=== PATIENT | male | born 1990 | race Caucasian/White ===

== ENCOUNTER 2019-11-12 04:06 | Emergency (ER) | payer MEDICAID, SELFPAY ==
[2019-11-12 04:11] VITALS: BP 125/59; PULSE 125; RESP 20; TEMP 38.4; O2SAT 95; BMI 34.3
--- NOTE | 2019-11-12 04:16 | ED_ITS ---
Entered by Nimisha Alcala, acting as scribe for Abdullahi Mcgregor MD Nov 12, 2019 04:06 HPI - Nausea/Vomiting/Diarrhea General: Chief complaint: Nausea/Vomiting/Diarrhea Stated complaint: n/v Time Seen by Provider: 11/12/19 04:16 Source: patient Mode of arrival: ambulatory Limitations: no limitations History of Present Illness: HPI Narrative: 29 yo m came to the er pov for nausea, vomiting, fever and headache. Onset was last night. Pt said that he was around his mother that had the flu. Pt said that he right now he is light bothers his eyes at this time. Pt also does have a cough and congestion. MD elicited complaint: nausea, vomiting and other Onset (ago): day(s) (last night) Associated nausea: Yes Associated abdominal pain: No Location of pain: None Pain consistency: constant Severity: mild Context: sick contacts (mother) Associated symtoms: Reports fevers/chills, headache(s) and nausea; Denies chest pain or dysuria Review of Systems General: Reports: other (negative unless marked) Const: Reports: fever Eyes: Denies: blurry vision or eye discomfort ENMT: Denies: throat pain or dental pain Card: Denies: chest pain Resp: Reports: productive cough GI: Reports: nausea and vomiting : Denies: painful urination Musc: Denies: neck pain or back pain Skin/Breast: Denies: rash Neuro: Reports: headache Psych: Denies: depression Garrick/Lymph: Denies: easy bruising All/Imm: Denies: hives PFSH ED 2 PFSH: Social History Smoking and tobacco status: current every day smoker Physical Exam Const: COMMON NORMALS: no apparent distress, oriented x3 and healthy appearing HENMT: COMMON NORMALS: normocephalic and head/scalp atraumatic HEAD & SCALP: normocephalic and atraumatic Eye: COMMON NORMALS: PERRL and EOMs intact bilaterally PUPIL: Yes PERRL Neck/C-Spine: COMMON NORMALS: full ROM and supple Chest: COMMONS NORMALS: inspection of chest normal and palpation of chest normal Resp: COMMON NORMALS: normal respiratory effort, no retractions, no use of accessory muscles and clear to auscultation bilaterally AUSCULTATION: clear to auscultation bilaterally Cardio: COMMON NORMALS: regular rate, regular rhythm and no murmurs RATE: regular rate RHYTHM: regular rhythm GI: COMMON NORMALS: normal to inspection, nondistended, normoactive bowel sounds, soft to palpation, non-tender and no masses PALPATION: Yes soft Extremity: COMMON NORMALS: normal to inspection and full ROM Neuro: COMMON NORMALS: oriented x3, moves all extremities and no focal motor deficits Psych: COMMON NORMALS: mental status grossly normal, thought process normal and cooperative THOUGHT PROCESS: normal thought process Skin: COMMON NORMALS: no rashes or lesions noted and no wounds GENERAL SKIN EXAM: no rashes or lesions noted Course Vital Signs: Vital signs: Vital Signs Temperature 101.2 F H 11/12/19 04:11 Pulse Rate 125 H 11/12/19 04:11 Respiratory Rate 20 H 11/12/19 04:11 Blood Pressure 125/59 11/12/19 04:11 Pulse Oximetry 95 11/12/19 04:11 MDM - Nausea/Vomiting/Diarrhea MDM Narrative: Medical decision making narrative: Raffi presents here with vomiting along with muscle aches and has influenza. We will start him on Tamiflu.. Patient's feels much improved here. Patient's lab work here is normal. Patient stable for discharge and is return if worsening. Lab Data: Labs: Lab Results 11/12/19 11/12/19 11/12/19 Range/Units 04:27 04:27 04:27 WBC 7.4 (4.0-10.0) 10^3/ uL RBC 4.80 (4.1-5.3) 10^6/u L Hgb 14.8 (11.7-16.6) g/dL Hct 43.3 (42.0-52.0) % MCV 90.2 (80-94) fL MCH 30.8 (28.0-34.0) pg MCHC 34.2 (30.0-36.0) g/dL RDW 12.5 (12.1-15.1) % Plt Count 161 (130-400) 10^3/c mm MPV 11.4 H (7.4-10.4) fL Neut % (Auto) 86.2 % Lymph % (Auto) 4.8 % Wilkinson % (Auto) 8.2 % Eos % (Auto) 0.3 % Baso % (Auto) 0.1 % Neut # (Auto) 6.3 (1.8-7.7) 10^3/u L Lymph # (Auto) 0.4 L (0.8-4.8) 10^3/u L Wilkinson # (Auto) 0.6 (0.2-0.9) 10^3/u L Eos # (Auto) 0.0 (0.0-0.8) 10^3/u L Baso # (Auto) 0.0 (0.0-0.1) 10^3/u L Nucleated RBC % (a uto) 0 % Nucleated RBCs # 0.0 /100WBC Sodium 135 L (136-145) mmol/L Potassium 3.9 (3.5-5.1) mmol/L Chloride 101 (98-107) mmol/L Carbon Dioxide 21 L (22-29) mmol/L Anion Gap 16.9 (5-19) BUN 17 (6-20) mg/dL Creatinine 0.9 (0.7-1.2) mg/dL GFR Calculation 101.2 (90-130) mL/min Glucose 136 H (65-115) mg/dL Calculated Osmolal ity 278 L (285-295) mOsm/k g Calcium 9.9 (8.5-10.5) mg/dL Total Bilirubin 0.2 (0.15-1.2) mg/dL AST 20 (0-40) U/L ALT 29 (0-41) U/L Alkaline Phosphata se 68 (40-130) IU/L Total Protein 7.6 (6.6-8.7) g/dL Albumin 4.4 (3.5-5.2) g/dL Globulin 3.2 (1.3-4.6) g/dL Lipase 10 L (13-60) U/L Influenza Type A A g Positive H (Negative) POC Influenza B Ag Negative (Negative) Discharge Plan Discharge Patient Disposition: Home, Self-Care Clinical Impression: Influenza Condition: Stable Prescriptions: New Tamiflu 75 mg capsule 75 mg PO BID 5 Days Qty: 10 RF: 0 Zofran 4 mg tablet 4 mg PO QID PRN (Reason: nausea and vomiting) Qty: 14 RF: 0 Discharge Orders: Discharge Order (Routine); Ordered 03/10/20 Ordered By: Abdullahi Mcgregor Referrals: Masoud Steven Jr, MD [Primary Care Provider] - 4-7 days Discharge Diet: Advance as tolerated Discharge Activity: Resume usual activity Patient Instructions: Influenza (ED) Coding Level of Care Code ED Biodiesel Engineering Manager for Chg Fwd The documentation recorded by the Fredrick maharaj Stephanie Lyn, accurately reflects the service I personally performed and the decisions made by Balbir andrea Korby, MD Nov 12, 2019 04:06
[2019-11-12 04:37] LABS: Basophils % 0.1 %; Eosinophils % 0.3 %; Hematocrit 43.3 % (42.0-52.0); Hemoglobin 14.8 g/dL (11.7-16.6); Lymphocytes # 0.4 10^3/uL (0.8-4.8); Lymphocytes % 4.8 %; Mean Corpuscular HGB Conc 34.2 g/dL (30.0-36.0); Mean Corpuscular Hemoglobin 30.8 pg (28.0-34.0); Mean Corpuscular Volume 90.2 fL (80-94); Mean Platelet Volume 11.4 fL (7.4-10.4); Monocytes # 0.6 10^3/uL (0.2-0.9); Monocytes % 8.2 %; Neutrophils # 6.3 10^3/uL (1.8-7.7); Neutrophils % 86.2 %; Nucleated Red Blood Cells % 0 %; Platelet Count 161 10^3/cmm (130-400); Red Cell Distribution Width 12.5 % (12.1-15.1); White Blood Count 7.4 10^3/uL (4.0-10.0)
[2019-11-12] MEDS: diphenhydrAMINE 50 mg/mL SDV 1mL IVP (04:44)
[2019-11-12] MEDS: metoclopramide 5 mg/mL SDV 2 mL 10 MG IVP (04:44)
[2019-11-12] MEDS: acetaminophen 500 mg Tablet 1000 MG PO (04:44)
[2019-11-12] MEDS: sodium chloride 0.9% 1,000 ML 999 ML IV ×2 (04:45)
[2019-11-12 04:54] LABS: Influenza A by IFA Positive (Negative); Influenza B by IFA Negative (Negative)
[2019-11-12 04:55] LABS: Alanine Aminotransferase 29 U/L (0-41); Albumin Level 4.4 g/dL (3.5-5.2); Alkaline Phosphatase 68 IU/L (40-130); Anion Gap 16.9 (5-19); Aspartate Amino Transferase 20 U/L (0-40); Blood Urea Nitrogen 17 mg/dL (6-20); Calcium 9.9 mg/dL (8.5-10.5); Carbon Dioxide 21 mmol/L (22-29); Chloride 101 mmol/L (98-107); Globulin 3.2 g/dL (1.3-4.6); Glomerular Filtration Rate 101.2 mL/min (90-130); Glucose 136 mg/dL (65-115); Lipase 10 U/L (13-60); Osmolality Calculated 278 mOsm/kg (285-295); Potassium 3.9 mmol/L (3.5-5.1); Sodium 135 mmol/L (136-145); Total Bilirubin 0.2 mg/dL (0.15-1.2); Total Protein 7.6 g/dL (6.6-8.7)
[2019-11-12 05:56] VITALS: BP 95/50; PULSE 110; RESP 24; TEMP 37.1; O2SAT 98
== END 2019-11-12 05:57 | disposition home or self-care (01) ==
PROVIDERS: Emergency Provider Emergency Medicine; PCP Pediatrics Adolescent Medicine
DX: J11.1 Influenza due to unidentified influenza virus with other respiratory manifestations (principal); F17.200 Nicotine dependence, unspecified, uncomplicated
CPT/HCPCS: 12345; 36415; 80053; 83690; 85025; 87804; 96361; 96374; 96375; 99283; J1200; J2765; J7030

== ENCOUNTER 2020-04-01 12:33 | Emergency (ER) | payer MEDICAID, SELFPAY ==
[2020-04-01 13:11] VITALS: BP 144/66; PULSE 65; RESP 16; TEMP 36.3; O2SAT 98; BMI 34.7
--- NOTE | 2020-04-01 14:09 | ED_ITS ---
HPI - Neck Pain/Injury General: Chief Complaint: Neck Pain/Injury Stated Complaint: neck pain/IRAHETA Time Seen by Provider: 04/01/20 14:03 Source: patient and family Mode of arrival: ambulatory Limitations: no limitations History of Present Illness: HPI Narrative: Patient states that at least once a year for the last 5 years he has had these neck pain, usually on the right side of his neck. He had been told that he has a pinched nerve and other that time he had been told that he had muscle spasms. He had been referred to a specialist but because he is uninsured he has not gone to see the specialist. Symptoms started about 4 days ago and have progressively worsened. No trauma, no fever, no neck stiffness. MD complaint: neck pain Onset (ago): day(s) (4) Place: home Radiation: right lateral Severity: severe Severity scale (1-10): 10 Quality: sharp and spasming Duration: constant and progressively worsening Relieving factors: none Exacerbating factors: movement of neck Associated symptoms: Reports no associated symptoms; Denies headache(s) or nausea Treatments prior to arrival: none Review of Systems General: Reports: 10 or more systems reviewed and unremarkable except in HPI and below Const: Denies: fever(s), chills or body aches Eyes: Denies: change in vision or blurry vision ENMT: Denies: throat pain, enlarged tonsils, odynophagia, hoarseness, mouth pain or swelling of lips/tongue Card: Denies: palpitations, irregular heart rhythm, edema or swelling of feet/ankles Resp: Denies: dyspnea, productive cough or non-productive cough GI: Denies: abdominal pain, nausea or vomiting : Denies: flank pain, dysuria, urinary frequency, urinary urgency or urinary hesitancy Musc: Reports: neck pain; Denies: back pain or extremity swelling Skin/Breast: Denies: rash, pruritus or erythema Neuro: Denies: headache(s), numbness in extremities or weakness in extremities Endo: Denies: polyuria, polydipsia or tired all the time PFSH ED PFSH: Social History (Reviewed 04/01/20 @ 14:13 by Nanda Chow MD, [facility] [place]) Smoking and tobacco status: former smoker Quit status (tobacco): has quit using tobacco Alcohol intake: current Alcohol intake frequency: holidays/special occasions only Substance/Drug Use: never Physical Exam Const: COMMON NORMALS: no acute distress, average body habitus, patient oriented x3, no limitations, healthy appearing, alert and well nourished HENMT: COMMON NORMALS: normocephalic, atraumatic and moist oral mucous membranes HEAD & SCALP: normocephalic and atraumatic Eye: COMMON NORMALS: Equal, round and reactive pupils present, EOMs intact bilaterally, conjunctivae normal and no scleral icterus CONJUNCTIVA: Yes conjunctivae normal PUPIL: Yes Equal, round and reactive pupils present Neck/C-Spine: COMMON NORMALS: full ROM, supple, no meningeal signs, no JVD and No carotid bruits CERVICAL SPINE: No Cervical spine tenderness, Yes Paracervical muscle tenderness right, Yes Paracervical spasm right and Yes Trapezius muscle tenderness right Resp: COMMON NORMALS: normal respiratory effort, No retractions, No use of accessory muscles, clear to auscultation bilaterally and percussion normal AUSCULTATION: clear to auscultation bilaterally PERCUSSION: percussion normal Cardio: COMMON NORMALS: no JVD, regular rate, regular rhythm, S1 normal heart sound present, S2 normal heart sound present, No gallops present (Cardio), No clicks present (Cardio), No murmurs present (Cardio), No rub (Cardio) and Peripheral pulses 2+ throughout RATE: regular rate RHYTHM: regular rhythm HEART SOUNDS: S1 normal heart sound present and S2 normal heart sound present PERIPHERAL PULSES: Peripheral pulses 2+ throughout GI: COMMON NORMALS: Normal to inspection, nondistended, normoactive bowel sounds present, Soft to palpation, non-tender, No hepatosplenomegaly present, no masses and no bruits PALPATION: Yes Soft to palpation and Yes No hepatosplenomegaly present : COMMON NORMALS: Yes no CVA tenderness BLADDER/KIDNEY EXAM: Yes no CVA tenderness Back/Pelvis: COMMON NORMALS: no CVA tenderness Extremity: COMMON NORMALS: normal to inspection, full ROM, capillary refill normal, no calf tenderness and no pedal edema Neuro: COMMON NORMALS: patient oriented x3 SENSORIUM/ORIENTATION: Yes alert MENINGEAL SIGNS: Yes no meningeal signs Skin: COMMON NORMALS: no rashes or lesions noted, no wounds, turgor normal, no jaundice, no petechiae and no mottling GENERAL SKIN EXAM: no rashes or l esions noted and turgor normal Course Reevaluation(s): Reevaluation #1: Patient feels much better. Pain is resolved. The nurse had told me that the patient neglected to mention that he jumped off a few bridges a couple of days ago which probably caused this pain. I therefore ordered a CT of his neck which was negative. We will discharge him home with no new orders and he voiced understanding and is in agreement with the plan. Time: 16:30 Vital Signs: Vital signs: Vital Signs Temperature 97.4 F L 04/01/20 13:11 Pulse Rate 76 04/01/20 15:26 Respiratory Rate 16 04/01/20 15:26 Blood Pressure 120/71 04/01/20 15:26 Pulse Oximetry 96 04/01/20 15:26 MDM - Neck Pain/Injury MDM Narrative: Medical decision making narrative: 30-year-old gentleman with muscular neck pain. Pain started a few days after he jumped off bridges into [employer] for recreation. CT scan of his neck was negative for acute fracture or dislocation. Patient obtain relief following the Toradol and Norflex shot. He is discharged home with no new orders. Imaging Data^: Other CT: Radiologist's impression: [place] [address] CT Scan Report Signed Patient: Raffi Beasley #: [id number] : 1990Acct#:[id number] Age/Sex: 30 / MADM Date: 04/01/20 Loc: ERRoom/Bed: Attending Dr: Ordering Provider/Ordering MD: Nanda Chow MD, [facility] [place] Date of Service: 04/01/20 Procedure(s): CT cervical spin wo con* [id number] Accession Number(s): [id number] Report Number: [id number] PROCEDURE INFORMATION: Exam: CT Cervical Spine Without Contrast Exam date and time: 04/01/2020 3:35 PM Age: 30 years old Clinical indication: Injury or trauma; Injury history: Jumped off bridge; Initial encounter; Blunt trauma; Injury date: 2 days ago; Additional info: Neck pain. Jumped of bridges 2 days ago TECHNIQUE: Imaging protocol: Computed tomography images of the cervical spine without contrast. Radiation optimization: All CT scans at this facility use at least one of these dose optimization techniques: automated exposure control; mA and/or kV adjustment per patient size (includes targeted exams where dose is matched to clinical indication); or iterative reconstruction. COMPARISON: CR Cervical Spine AP/Lat* [id number] 10/23/2018 7:50 AM RADIATION DOSE METRICS: Total DLP (mGy-cm): 937.45 FINDINGS: Vertebrae: No acute fracture. Normal alignment. Discs/Spinal canal/Neural foramina: No significant disc protrusion. No severe spinal canal stenosis. No significant neural foraminal narrowing. Soft tissues: Unremarkable. Lungs: Lung apices are normal. CT/CT cervical spin wo con* [id number] IMPRESSION: No acute findings. Radiation Dose CTDIVOL = (mGy): DLP = 937.45 (mGy-cm) Dictated By:London Fiore MD Signed By:London Fioreigned Date/Time:04/01/20 1600 DD/ 1559 Discharge Plan Discharge Patient Disposition: Home Clinical Impression: Strain of neck muscle Qualifiers: Encounter type: initial encounter Qualified Code(s): S16.1XXA - Strain of muscle, fascia and tendon at neck level, initial encounter Condition: Stable Prescriptions: Continued ibuprofen 200 mg Tablet 400 mg PO PRN RF: 0 Tylenol 5 tab PO PRN RF: 0 Discharge Orders: Discharge Order (Routine); Ordered 04/01/20 Ordered By: Nanda Chow Discharge Diet: Usual diet Discharge Activity: Increase activity as tolerated Patient Instructions: Cervical Sprain (ED) Activity Restrictions/Additional Instructions: Return for any new or worsening symptoms. You may apply a warm compress to the affected area for 15 minutes on and at least 15 minutes off. Take Tylenol or ibuprofen as needed for pain. Coding Level of Care Code ED Operating Room Manager for Marv Fwalisha Exam Comprehensive
[2020-04-01] MEDS: ketorolac 60 mg/2 mL INJ IM (14:23)
[2020-04-01] MEDS: orphenadrine 30 mg/mL Inj 2 mL 60 MG IM (14:23)
[2020-04-01 14:25] VITALS: BP 130/75; PULSE 74; RESP 18; O2SAT 97
--- NOTE | 2020-04-01 15:14 | CTR_ITS ---
PROCEDURE INFORMATION: Exam: CT Cervical Spine Without Contrast Exam date and time: 04/01/2020 3:35 PM Age: 30 years old Clinical indication: Injury or trauma; Injury history: Jumped off bridge; Initial encounter; Blunt trauma; Injury date: 2 days ago; Additional info: Neck pain. Jumped of bridges 2 days ago TECHNIQUE: Imaging protocol: Computed tomography images of the cervical spine without contrast. Radiation optimization: All CT scans at this facility use at least one of these dose optimization techniques: automated exposure control; mA and/or kV adjustment per patient size (includes targeted exams where dose is matched to clinical indication); or iterative reconstruction. COMPARISON: CR Cervical Spine AP/Lat* [id number] 10/23/2018 7:50 AM RADIATION DOSE METRICS: Total DLP (mGy-cm): 937.45 FINDINGS: Vertebrae: No acute fracture. Normal alignment. Discs/Spinal canal/Neural foramina: No significant disc protrusion. No severe spinal canal stenosis. No significant neural foraminal narrowing. Soft tissues: Unremarkable. Lungs: Lung apices are normal. CT/CT cervical spin wo con* [id number] IMPRESSION: No acute findings. Radiation Dose CTDIVOL = (mGy): DLP = 937.45 (mGy-cm)
[2020-04-01 15:26] VITALS: BP 120/71; PULSE 76; RESP 16; O2SAT 96
[2020-04-01 16:58] VITALS: BP 113/63; PULSE 53; RESP 16; TEMP 37.2; O2SAT 96
== END 2020-04-01 17:00 | disposition home or self-care (01) ==
PROVIDERS: Emergency Provider Family Medicine
DX: S16.1XXA Strain of muscle, fascia and tendon at neck level, initial encounter (principal); Z87.891 Personal history of nicotine dependence; X58.XXXA Exposure to other specified factors, initial encounter
CPT/HCPCS: 12345; 72125; 96372; 99281; 99283; J1885; J2360

== ENCOUNTER 2021-07-10 20:19 | Emergency (ER) | payer MEDICAID, SELFPAY ==
[2021-07-10 20:34] VITALS: BP 104/67; PULSE 92; RESP 16; TEMP 37; O2SAT 98
--- NOTE | 2021-07-10 21:22 | ED_ITS ---
HPI - Back Pain/Injury General: Chief Complaint: Back Pain/Injury Stated Complaint: back pain, moved everywhere Time Seen by Provider: 07/10/21 21:05 Source: patient Mode of arrival: ambulatory Limitations: no limitations History of Present Illness: HPI Narrative: Patient is a 31-year-old male who presents to ED today with a complaint of lower back pain. He states he has had pain over the past 3 to 4 days. He states he was working about a week ago loading wood into a trailer but states this did not entail a lot of heavy lifting. He states pain seems to stay in his lower back. He does have some mild discomfort to his right groin but does not feel the pain is radiating around from his back. He does not complain of any urinary symptoms. He has no flank pain. Denies penile discharge/lesions. No testicular/scrotal swelling or redness. Patient denies radicular symptoms. No fever, chills, body aches. 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 MD elicited complaint: back pain Onset (ago): day(s) Timing: constant Severity: moderate Pain scale (0-10): 7 Similar Symptoms Previously: No Location: lumbar spine Radiation: groin Exacerbating factors: movement, supine positioning and lifting Associated symptoms: Deny abdominal pain, chills, difficulty walking, dysuria, fatigue, fever(s), hematuria, nausea or vomiting Work related injury: No Review of Systems Const: Denies: fever(s), chills, body aches, fatigue or malaise Card: Denies: chest pain Resp: Denies: dyspnea GI: Denies: abdominal pain, nausea, vomiting or diarrhea : Reports: genital pain; Denies: flank pain, dysuria, hematuria, genital lesions, penile discharge, testicular mass, scrotal swelling or hematospermia Musc: Reports: back pain; Denies: neck pain, extremity pain or joint pain Skin/Breast: Denies: rash Neuro: Denies: headache(s), numbness in extremities, weakness in extremities, sensory changes or difficulty walking PFS ED PFSH: Social History (Reviewed 04/01/20 @ 14:13 by Nanda Chow MD, [facility] [place]) Smoking and tobacco status: former smoker Quit status (tobacco): has quit using tobacco Alcohol intake: current Alcohol intake frequency: holidays/special occasions only Physical Exam Const: COMMON NORMALS: no acute distress, patient oriented x3, no limitations, alert and well nourished GENERAL APPEARANCE: cooperative NUTRITIONAL APPEARANCE: overweight ORIENTATION/CONSCIOUSNESS: Yes awake, Yes oriented to person, Yes oriented to place and Yes oriented to time HENMT: COMMON NORMALS: normocephalic and atraumatic HEAD & SCALP: normocephalic and atraumatic Resp: COMMON NORMALS: normal respiratory effort and clear to auscultation bilaterally AUSCULTATION: clear to auscultation bilaterally Cardio: COMMON NORMALS: regular rate and regular rhythm RATE: regular rate RHYTHM: regular rhythm GI: COMMON NORMALS: Normal to inspection, nondistended, normoactive bowel sounds present, Soft to palpation, non-tender, No hepatosplenomegaly present and no masses PALPATION: Yes Soft to palpation and Yes No hepatosplenomegaly present : COMMON NORMALS: Yes no CVA tenderness BLADDER/KIDNEY EXAM: Yes no CVA tenderness PENIS: normal penis MEATUS: meatus normal SCROTUM: Yes testes descended bilaterally, No Scrotal tenderness present, No erythematous, No edematous and No scrotal swelling TESTES: Yes testicular lie normal, No testicular swelling, No testicular tenderness and Yes epididymides normal Back/Pelvis: COMMON NORMALS: no CVA tenderness THORACIC SPINE/UPPER BACK: Yes normal to inspection, Yes thoracic ROM normal, No thoracic spinal tenderness, No paraspinal muscle tenderness and No paraspinal muscle spasm LUMBAR SPINE/LOWER BACK: Yes lumbar spinal tenderness Lumbar spinal tenderness location: L2, L3 and L4, Yes paraspinal muscle tenderness, No paraspinal muscle spasm, No mass present and Yes straight leg raise positive left PELVIS: Yes buttocks normal SACROILIAC JOINTS: Yes SI joints normal Extremity: COMMON NORMALS: normal to inspection and full ROM GENERAL: Yes normal exam except as noted Neuro: KEYANNA COMA SCALE: document GCS findings Tell coma scale eye o pening: Spontaneous Tell coma scale verbal response: Orientated Tell coma scale motor response: Obey commands Tell coma scale total score: 15 COMMON NORMALS: patient oriented x3, moves all extremities, no focal motor deficits, no sensory deficits noted and gait normal SENSORIUM/ORIENTATION: Yes alert, Yes oriented to person, Yes oriented to place and Yes oriented to time Skin: COMMON NORMALS: no rashes or lesions noted GENERAL SKIN EXAM: no rashes or lesions noted TRAUMA: no lacerations or abrasions Course Vital Signs: Vital signs: Vital Signs Temperature 98.6 F 07/10/21 20:34 Pulse Rate 84 07/10/21 23:27 Respiratory Rate 18 07/10/21 23:27 Blood Pressure 110/70 07/10/21 23:27 Pulse Oximetry 100 07/10/21 23:27 MDM - Back Pain/Injury MDM Narrative: Medical decision making narrative: Patient's pain has decreased from a 7/10 to a 2/10 following IM Toradol and Norflex. Patient has no acute neurologic deficits on his exam. He is not febrile or tachycardic. 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 At this time I do not have any suspicion for an abscess/discitis. Strict return to ED precautions given. Otherwise recommend follow-up with primary care. Lab Data: Labs: Lab Results 07/10/21 22:33 Urine Color Yellow (Yellow) Urine Appearance Clear (CLEAR) Urine pH 5 (5-7) Ur Specific Gravit y 1.025 (1.005-1.030) Urine Protein Neg (Negative) Urine Glucose (UA) Norm (Normal) Urine Ketones Negative (Negative) Urine Blood Neg (Negative) Urine Nitrate Negative (Negative) Urine Bilirubin Neg (Negative) Urine Urobilinogen Norm mg/dL mg/dL (Negative) Ur Leukocyte Juany ase Negative (Negative) Discharge Plan Discharge Patient Disposition: Home Clinical Impression: Low back pain Qualifiers: Chronicity: acute Back pain laterality: midline Sciatica presence: without sciatica Qualified Code(s): M54.50 - Low back pain, unspecified Condition: Stable Prescriptions: New cyclobenzaprine 10 mg tablet 10 mg PO TID Qty: 14 RF: 0 Medrol (Luis) 4 mg tablets,dose pack See Rx Instructions .ROUTE .COMPLEX Qty: 21 RF: 0 ibuprofen 800 mg tablet 800 mg PO Q8H PRN (Reason: pain) Qty: 20 RF: 0 Discontinued ibuprofen 200 mg Tablet 400 mg PO PRN RF: 0 Tylenol 5 tab PO PRN RF: 0 Discharge Orders: Discharge ED (Routine); Ordered 07/10/21 Ordered By: Jessy Laguerre Patient Instructions: Acute Low Back Pain (ED) Activity Restrictions/Additional Instructions: As we discussed please return to the emergency department for worsening back pain, trouble walking/ambulating, fevers greater than 100.4, generally feeling unwell, inability to urinate, loss of bowels, or any other concerns you may have. Otherwise please follow-up with your primary care provider. Coding Level of Care Code ED Geriatric Social Work Professor for Chg Fwd Exam Comprehensive
[2021-07-10] MEDS: ketorolac 60 mg/2 mL INJ IM (22:35)
[2021-07-10] MEDS: orphenadrine 30 mg/mL Inj 2 mL 60 MG IM (22:36)
[2021-07-10 22:55] LABS: Add Urine Microscopic? NO; Charge for UA Resulting for Rev
[2021-07-10 23:02] LABS: Bilirubin Urine Neg (Negative); Blood Urine Neg (Negative); Glucose Urine UA Norm (Normal); Ketones Urine Negative (Negative); Leukocyte Esterase Urine Negative (Negative); Nitrate Urine Negative (Negative); Protein Urine Neg (Negative); Specific Gravity, Urine 1.025 (1.005-1.030); Urine Appearance Clear (CLEAR); Urine Color Yellow (Yellow); Urobilinogen Urine Norm (Negative); pH Urine 5 (5-7)
[2021-07-10 23:27] VITALS: BP 110/70; PULSE 84; RESP 18; O2SAT 100
== END 2021-07-10 23:28 | disposition home or self-care (01) ==
PROVIDERS: Emergency Provider Physician Assistant
DX: M54.50 Low back pain, unspecified (principal); Z87.891 Personal history of nicotine dependence
CPT/HCPCS: 81003; 96372; 99283; J1885; J2360

== ENCOUNTER 2021-12-18 16:12 | Emergency (ER) | payer MEDICAID, SELFPAY ==
[2021-12-18 16:40] VITALS: BP 155/81; PULSE 66; RESP 18; TEMP 36; O2SAT 100; BMI 32.3
--- NOTE | 2021-12-18 16:51 | CTR_ITS ---
PROCEDURE INFORMATION: Exam: CT Abdomen And Pelvis With Contrast Exam date and time: 12/18/2021 6:34 PM Age: 31 years old Clinical indication: Abdominal pain; Generalized; Patient HX: C/O severe abd pain w n/v; Additional info: Eval for pathologies TECHNIQUE: Imaging protocol: Computed tomography of the abdomen and pelvis with contrast. Radiation optimization: All CT scans at this facility use at least one of these dose optimization techniques: automated exposure control; mA and/or kV adjustment per patient size (includes targeted exams where dose is matched to clinical indication); or iterative reconstruction. Contrast material: OMNI 300; Contrast volume: 95 ml; Contrast route: INTRAVENOUS (IV); COMPARISON: No relevant prior studies available. RADIATION DOSE METRICS: Total DLP (mGy-cm): 1772.14 FINDINGS: Lungs: Mosaic lung attenuation is seen in the lung bases which may be secondary to small airways or small vessel disease. Heart: The heart is normal in size. Liver: Normal. No mass. Gallbladder and bile ducts: Normal. No calcified stones. No ductal dilation. Pancreas: Normal. No ductal dilation. Spleen: Normal. No splenomegaly. Adrenal glands: Normal. No mass. Kidneys and ureters: Normal. No hydronephrosis. Stomach and bowel: Unremarkable. No obstruction. No mucosal thickening. Appendix: The appendix is normal. Intraperitoneal space: Unremarkable. No free air. No significant fluid collection. Arteries: Unremarkable. No abdominal aortic aneurysm. Lymph nodes: Unremarkable. No enlarged lymph nodes. Urinary bladder: Unremarkable as visualized. Reproductive: Unremarkable as visualized. Bones/joints: Unremarkable. No acute fracture. Soft tissues: Unremarkable. CT/CT abdomen pelvis w con* [id number] IMPRESSION: 1. No acute abnormality is seen in the abdomen or pelvis. 2. Bibasilar mosaic lung attenuation which may be secondary to small airways or small vessel disease.
[2021-12-18] MEDS: ondansetron 2 mg/ML SDV 2 mL 4 MG IVP (17:03)
[2021-12-18] MEDS: morphine 4 mg/mL SDV 1 mL IVP (17:03)
[2021-12-18] MEDS: sodium chloride 0.9% 1,000 ML 999 ML IV (17:04)
[2021-12-18 17:08] LABS: Basophils % 0.2 %; Eosinophils % 0.1 %; Hematocrit 44.7 % (42.0-52.0); Hemoglobin 15.8 g/dL (11.7-16.6); Lymphocytes # 1.7 10^3/uL (0.8-4.8); Lymphocytes % 11.3 %; Mean Corpuscular HGB Conc 35.3 g/dL (30.0-36.0); Mean Corpuscular Hemoglobin 30.4 pg (28.0-34.0); Mean Corpuscular Volume 86.1 fl (80-94); Mean Platelet Volume 11.6 fL (7.4-10.4); Monocytes # 0.6 10^3/uL (0.2-0.9); Monocytes % 4.3 %; Neutrophils # 12.19 10^3/uL (1.8-7.7); Neutrophils % 83.7 %; Nucleated Red Blood Cells % 0 %; Platelet Count 225 10^3/cmm (130-400); Red Blood Count 5.19 10^6/uL (4.1-5.3); Red Cell Distribution Width 12.2 % (12.1-15.1); White Blood Count 14.6 10^3/uL (4.0-10.0)
[2021-12-18 17:11] VITALS: BP 129/74; PULSE 63; RESP 12; O2SAT 93
--- NOTE | 2021-12-18 17:24 | ED_ITS ---
HPI - General Adult General: Chief complaint: Abdominal Pain Stated complaint: severe abdominal pain/nausea/vomiting/headache Time Seen by Provider: 12/18/21 16:45 History of Present Illness: Patient is a 31-year-old male with no significant past medical history presenting to the emergency room with complaints of generalized abdominal pain, nausea and vomiting since 12:00. Patient was in the vehicle when he suddenly developed significant abdominal pain. Patient reports multiple episodes of emesis. Patient denies any prior abdominal surgery, complaints, new penile discharge, urinary complaint, melena/hematochezia. Onset:12pm Duration:ongoing Location:home Severity:moderate Associated symptoms: Reports nausea and vomiting; Deny chest pain, dyspnea, rash or palpitations Review of Systems Const: Denies: fever(s) or chills Eyes: Denies: change in vision ENMT: Denies: mouth pain Card: Denies: chest pain or palpitations Resp: Denies: dyspnea or non-productive cough GI: Reports: abdominal pain, nausea and vomiting; Denies: diarrhea : Denies: dysuria Musc: Denies: extremity pain Skin/Breast: Denies: rash or new lesions Neuro: Denies: weakness in extremities Psych: Reports: other (Normal mood) Garrick/Lymph: Denies: easy bruising PFSH ED PFSH: Medical History (Updated 12/18/21 @ 19:41 by Mckay France MD) No pertinent past medical history Social History (Updated 12/18/21 @ 17:26 by Mckay France MD) Smoking and tobacco status: former smoker Quit status (tobacco): has quit using tobacco Alcohol intake: current Alcohol intake frequency: holidays/special occasions only Substance/Drug Use: current Substance/Drug use type: Marijuana Physical Exam Const: COMMON NORMALS: alert HENMT: COMMON NORMALS: atraumatic HEAD & SCALP: atraumatic MOUTH: moist mucous membranes not abnormal Eye: COMMON NORMALS: EOMs intact bilaterally and conjunctivae normal CONJUNCTIVA: Yes conjunctivae normal Neck/C-Spine: COMMON NORMALS: full ROM and supple Resp: COMMON NORMALS: normal respiratory effort and clear to auscultation bilaterally AUSCULTATION: clear to auscultation bilaterally Cardio: COMMON NORMALS: regular rate RATE: regular rate GI: COMMON NORMALS: Soft to palpation PALPATION: Yes Soft to palpation OTHER: +Mild diffuse abdominal TTP. NO guarding rebound, guarding, rigidity. No CVA tenderness to percussion. Neg Dai/Neg McBurney's point tenderness, no suprabupic tenderness to palpation. Extremity: COMMON NORMALS: full ROM Neuro: SENSORIUM/ORIENTATION: Yes alert MOTOR EXAM: No Abnormal motor strength present and Other motor observations present (no focal motor deficits) Psych: COMMON NORMALS: speech normal SPEECH: Yes normal speech MOOD & AFFECT: Yes euthymic mood Course Vital Signs: Vital signs: Vital Signs Temperature 96.8 F L 12/18/21 16:40 Pulse Rate 56 L 12/18/21 20:25 Respiratory Rate 17 12/18/21 20:25 Blood Pressure 119/75 12/18/21 20:25 Pulse Oximetry 94 12/18/21 20:25 MDM - General Adult Medical Decision Making 31-year-old male with history of daily marijuana use presenting to emergency room with complaints of severe abdominal pain nausea vomiting. On exam, patient is in mild distress with diffuse abdominal tenderness to palpation. No guarding no rebound tenderness. Lab work-up showed white count 14.6. CT abdomen pelvis showed no focal pathology. Patient noted to have lactate of 3. Initially on arrival. After IVF, lactate improved. Patient is now able to tolerate p.o. without any difficulty. Patient reports pain significantly better. Considered appendicitis however unlikely at this time given lack of signs and sx's to suggest appendicitis as etiology. Pt counseled that appendicitis may la ter develop and given appendicitis precautions and instructed to return if any development of RLQ tenderness, worsening or continued abdominal pain, or any fevers, chills, nausea, vomiting, or any other concerning signs or symptoms. Rx tylenol PRN abd pain, maalox/pepcid PRN dyspepsia, and zofran PRN nausea/vomiting Disposition: Discharge. Patient counseled regarding diagnostic impression, treat ment plan. Patient given ED strict return precautions to return for continuation, worsening, or development of new symptoms. Instructed to f/u w/ PCP regarding symptoms today. Patient verbalized understanding. Lab Data : 12/18/21 17:01 12/18/21 17:01 Radiology Impressions Abdomen/Pelvis CT 12/18/21 16:51 IMPRESSION: 1. No acute abnormality is seen in the abdomen or pelvis. 2. Bibasilar mosaic lung attenuation which may be secondary to small airways or small vessel disease. Laboratory Results WBC 14.6 10^3/uL (4.0-10.0) H 12/18/21 17:01 RBC 5.19 10^6/uL (4.1-5.3) 12/18/21 17:01 Hgb 15.8 g/dL (11.7-16.6) 12/18/21 17:01 Hct 44.7 % (42.0-52.0) 12/18/21 17: MCV 86.1 fl (80-94) 12/18/21 17: MCH 30.4 pg (28.0-34.0) 12/18/21 17: MCHC 35.3 g/dL (30.0-36.0) 12/18/21 17: RDW 12.2 % (12.1-15.1) 12/18/21 17: Plt Count 225 10^3/cmm (130-400) 12/18/21 17:01 MPV 11.6 fL (7.4-10.4) H 12/18/21 17:01 Neut % (Auto) 83.7 % 12/18/21 17:01 Lymph % (Auto) 11.3 % 12/18/21 17:01 [place] % (Auto) 4.3 % 12/18/21 17:01 Eos % (Auto) 0.1 % 12/18/21 17: Baso % (Auto) 0.2 % 12/18/21 17: Neut # (Auto) 12.19 10^3/uL (1.8-7.7) H 12/18/21 17:01 Lymph # (Auto) 1.7 10^3/uL (0.8-4.8) 12/18/21 17:01 [place] # (Auto) 0.6 10^3/uL (0.2-0.9) 12/18/21 17:01 Eos # (Auto) 0.0 10^3/uL (0.0-0.8) 12/18/21 17:01 Baso # (Auto) 0.0 10^3/uL (0.0-0.1) 12/18/21 17: Nucleated RBC % (auto) 0 % 12/18/21 17: Nucleated RBCs # 0.0 /100WBC 12/18/21 17:01 Sodium 137 mmol/L (136-145) 12/18/21 17:01 Potassium 4.1 mmol/L (3.5-5.1) 12/18/21 17:01 Chloride 100 mmol/L (98-107) 12/18/21 17:01 Carbon Dioxide 20 mmol/L (22-29) L 12/18/21 17:01 Anion Gap 21.1 (5-19) H 12/18/21 17:01 BUN 13 mg/dL (6-20) 12/18/21 17:01 Creatinine 0.7 mg/dL (0.7-1.2) 12/18/21 17:01 GFR Calculation 133.3 mL/min (90-130) H 12/18/21 17:01 Glucose 153 mg/dL (65-115) H 12/18/21 17:01 Calculated Osmolality 287 mOsm/kg (285-295) 12/18/21 17:01 Lactate 1.3 mmol/L (0.5-2.2) 12/18/21 19:50 Calcium 9.4 mg/dL (8.5-10.5) 12/18/21 17:01 Total Bilirubin 0.4 mg/dL (0.15-1.2) 12/18/21 17:01 AST 21 U/L (0-40) 12/18/21 17:01 ALT 24 U/L (0-41) 12/18/21 17:01 Alkaline Phosphatase 72 IU/L (40-130) 12/18/21 17:01 Total Protein 7.4 g/dL (6.6-8.7) 12/18/21 17:01 Albumin 5.3 g/dL (3.5-5.2) H 12/18/21 17:01 Globulin 2.1 g/dL (1.3-4.6) 12/18/21 17:01 Lipase 10 U/L (13-60) L 12/18/21 17:01 Urine Color Yellow (Yellow) 12/18/21 18:00 Urine Appearance Sl hazy (CLEAR) 12/18/21 18:00 Urine pH 8 (5-7) H 12/18/21 18:00 Ur Specific [place] 1.010 (1.005-1.030) 12/18/21 18:00 Urine Protein Neg (Negative) 12/18/21 18:00 Urine Glucose (UA) Norm (Normal) 12/18/21 18:00 Urine Ketones 1+ (Negative) H 12/18/21 18:00 Urine Blood Neg (Negative) 12/18/21 18:00 Urine Nitrate Negative (Negative) 12/18/21 18:00 Urine Bilirubin Neg (Negative) 12/18/21 18:00 Prot Sulfosalicylic Acd Positive (Negative) 12/18/21 18:00 Urine Urobilinogen Norm mg/dL (Negative) 12/18/21 18:00 Ur Leukocyte Esterase Negative (Negative) 12/18/21 18:00 Urine RBC 0-4 /hpf (0-2) H 12/18/21 18:00 Urine WBC 0-4 /hpf (0-5) H 12/18/21 18:00 Ur Squamous Epith Cells 0-4 /hpf (0-5) H 12/18/21 18:00 Amorphous Sediment 3+ /hpf 12/18/21 18:00 Urine Bacteria Trace /hpf (NONE) 12/18/21 18:00 Urine Opiates Screen Positive ng/mL (Negative) H 12/18/21 19:57 Ur Barbiturates Screen Negative ng/mL (Negative) 12/18/21 19:57 Ur Phencyclidine Scrn Negative ng/mL (Negative) 12/18/21 19:57 Ur Amphetamines Screen Negative ng/mL (Negative) 12/18/21 19:57 U Benzodiazepines Scrn Negative ng/mL (Negative) 12/18/21 19:57 Urine Cocaine Screen Negative ng/mL (Negative) 12/18/21 19:57 U Marijuana (THC) Screen Positive ng/mL (Negative) H 12/18/21 19:57 Imaging Data Other Imaging: Radiologist's impression: [address] [address] [address] Scan Report Signed Patient: Raffi Beasley Unit #: [id number] : 1990 Age/Sex: 31 / M ADM Date: 12/18/21 Loc: ER Room/Bed: Attending Dr: Ordering Provider/Ordering MD: Mckay France MD Date of Service: 04/16/22 Procedure(s): CT abdomen pelvis w con* [id number] Accession Number(s): [id number] Report Number: [id number] PROCEDURE INFORMATION: Exam: CT Abdomen And Pelvis With Contrast Exam date and time: 12/18/2021 6:34 PM Age: 31 years old Clinical indication: Abdominal pain; Generalized; Patient HX: C/O severe abd pain w n/v; Additional info: Eval for pathologies TECHNIQUE: Imaging protocol: Computed tomography of the abdomen and pelvis with contrast. Radiation optimization: All CT scans at this facility use at least one of these dose optimization techniques: automated exposure control; mA and/or kV adjustment per patient size (includes targeted exams where dose is matched to clinical indication); or iterative reconstruction. Contrast material: OMNI 300; Contrast volume: 95 ml; Contrast route: INTRAVENOUS (IV);? COMPARISON: No relevant prior studies available. RADIATION DOSE METRICS: Total DLP (mGy-cm): 1772.14 FINDINGS: Lungs: Mosaic lung attenuation is seen in the lung bases which may be secondary to small airways or small vessel disease. Heart: The heart is normal in size. Liver: Normal. No mass. Gallbladder and bile ducts: Normal. No calcified stones. No ductal dilation. Pancreas: Normal. No ductal dilation. Spleen: Normal. No splenomegaly. Adrenal glands: Normal. No mass. Kidneys and ureters: Normal. No hydronephrosis. Stomach and bowel: Unremarkable. No obstruction. No mucosal thickening. Appendix: The appendix is normal. Intraperitoneal space: Unremarkable. No free air. No significant fluid collection. Arteries: Unremarkable. No abdominal aortic aneurysm. Lymph nodes: Unremarkable. No enlarged lymph nodes. Urinary bladder: Unremarkable as visualized. Reproductive: Unremarkable as visualized. Bones/joints: Unremarkable. No acute fracture. Soft tissues: Unremarkable. CT/CT abdomen pelvis w con* [id number] IMPRESSION: 1. No acute abnormality is seen in the abdomen or pelvis. 2. Bibasilar mosaic lung attenuation which may be secondary to small airways or small vessel disease. ? Dictated By: Alfredo Henriquez MD Signed By: Alfredo Henriquez MD Signed Date/Time: 12/18/211934 DD/ 33 Discharge Plan Discharge Patient Disposition: Home Clinical Impression: Abdominal pain, Nausea & vomiting Prescriptions: New acetaminophen 500 mg tablet 500 mg PO Q6H PRN (Reason: pain) 5 Days Qty: 20 0RF Pepcid 20 mg tablet 20 mg PO BID PRN (Reason: abdominal pain) 10 Days Qty: 20 0RF ondansetron 4 mg tablet,disintegrating 4 mg PO TID PRN (Reason: nausea and vomiting) 4 Days Qty: 12 0RF Maalox Advanced 1,000-60 mg tablet,chewable 1 tab PO TID PRN (Reason: abdominal pain) 7 Days Qty: 21 0RF Discharge Orders: Discharge ED (Routine); Ordered 12/18/21 Ordered By: Mckay France Discharge Diet: Advance as tolerated Discharge Activity: Increase activity as tolerated Patient Instructions: Abdominal Pain (ED) Activity Restrictions/Additional Instructions: Please come back if you have any worsening abdominal pain, fever or chills, nausea or vomiting, diarrhea, blood in the stool, inability hold down liquid or solids, or any new concerning complaints. Please return if you develop continued nausea, vomiting, or develop fevers, chills, abdominal pain, abdominal pain that is in the lower right side of your abdomen, or any other concerning signs or symptoms. 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
[2021-12-18 17:58] LABS: Alanine Aminotransferase 24 U/L (0-41); Albumin Level 5.3 g/dL (3.5-5.2); Alkaline Phosphatase 72 IU/L (40-130); Anion Gap 21.1 (5-19); Aspartate Amino Transferase 21 U/L (0-40); Blood Urea Nitrogen 13 mg/dL (6-20); Calcium 9.4 mg/dL (8.5-10.5); Carbon Dioxide 20 mmol/L (22-29); Chloride 100 mmol/L (98-107); Globulin 2.1 g/dL (1.3-4.6); Glomerular Filtration Rate 133.3 mL/min (90-130); Glucose 153 mg/dL (65-115); Lipase 10 U/L (13-60); Osmolality Calculated 287 mOsm/kg (285-295); Potassium 4.1 mmol/L (3.5-5.1); Sodium 137 mmol/L (136-145); Total Bilirubin 0.4 mg/dL (0.15-1.2); Total Protein 7.4 g/dL (6.6-8.7)
[2021-12-18] MEDS: iohexol 300 mg/mL 100 mL Btl IV (18:33)
[2021-12-18 19:28] LABS: Add Urine Microscopic? YES; Bilirubin Urine Neg (Negative); Blood Urine Neg (Negative); Glucose Urine UA Norm (Normal); Ketones Urine 1+ (Negative); Leukocyte Esterase Urine Negative (Negative); Nitrate Urine Negative (Negative); Protein Urine Neg (Negative); Sulfosalicylic Acid Urine Positive (Negative); Urine Appearance SL Hazy (CLEAR); Urine Color Yellow (Yellow); Urobilinogen Urine Norm (Negative); pH Urine 8 (5-7)
[2021-12-18 19:42] LABS: Add Urine Culture? No; Amorphous Sediment Urine 3+ /hpf; Bacteria Urine TRACE /hpf; RBC Urine 0-4 /hpf (0-2); Squamous Epithelial Cell Urine 0-4 /hpf (0-5); WBC Urine 0-4 /hpf (0-5)
[2021-12-18] MEDS: LORazepam 2 mg/mL INJ 1 mL IVP (19:44)
[2021-12-18 19:54] VITALS: BP 118/59; PULSE 67; RESP 14; O2SAT 95
[2021-12-18 20:11] LABS: Lactate (Lactic Acid level) 1.3 mmol/L (0.5-2.2)
[2021-12-18 20:13] LABS: Amphetamines Screen Urine Negative (Negative); Barbiturates Screen Urine Negative (Negative); Benzodiazepines Screen Urine Negative (Negative); Cocaine Screen Urine Negative (Negative); Opiate Screen Urine Positive (Negative); PCP Screen Urine Negative (Negative); THC Screen Urine Positive (Negative)
--- NOTE | 2021-12-18 20:23 | PC.NURSE ---
both pt and visitor resting quietly in stretcher
[2021-12-18 20:25] VITALS: BP 119/75; PULSE 56; RESP 17; O2SAT 94
--- NOTE | 2021-12-18 20:32 | PC.PHAR ---
gave i mg ativan per patient request
[2021-12-18 21:41] VITALS: BP 111/62; PULSE 79; RESP 16; O2SAT 97
== END 2021-12-18 21:43 | disposition home or self-care (01) ==
PROVIDERS: Emergency Provider Emergency Medicine
DX: R10.9 Unspecified abdominal pain (principal); R11.2 Nausea with vomiting, unspecified; Z87.891 Personal history of nicotine dependence; F12.90 Cannabis use, unspecified, uncomplicated
CPT/HCPCS: 74177; 80053; 80306; 81001; 83605; 83690; 85025; 96361; 96374; 96375; 99284; J2060; J2270; J2405; J7030; Q9967

== ENCOUNTER 2022-03-05 05:28 | Emergency (ER) | payer MEDICAID, SELFPAY ==
[2022-03-05 05:34] VITALS: BP 135/91; PULSE 84; RESP 18; TEMP 36.8; O2SAT 96; BMI 39.0
--- NOTE | 2022-03-05 06:16 | ECG_ITS ---
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 Measurements Intervals [place] Rate: 66 P: 63 TX: 151 QRS: 100 QRSD: 94 T: 41 QT: 367 QTc: 386 Interpretive Statements SINUS RHYTHM WITH MARKED SINUS ARRHYTHMIA BORDERLINE RIGHT AXIS DEVIATION [QRS AXIS > 90] No previous ECG available for comparison Electronically Signed On 03-05-2022 12:26:34 CDT by Andrae Quiros M.D. [id number]
--- NOTE | 2022-03-05 06:16 | CTR_ITS ---
PROCEDURE INFORMATION: Exam: CT Head Without Contrast Exam date and time: 03/05/2022 7:00 AM Age: 31 years old Clinical indication: Dizziness; Additional info: Vertigo TECHNIQUE: Imaging protocol: Computed tomography of the head without contrast. Radiation optimization: All CT scans at this facility use at least one of these dose optimization techniques: automated exposure control; mA and/or kV adjustment per patient size (includes targeted exams where dose is matched to clinical indication); or iterative reconstruction. COMPARISON: CT cervical spin wo con* [id number] 04/01/2020 3:30 PM RADIATION DOSE METRICS: Total DLP (mGy-cm): 846.49 FINDINGS: Brain: No hemorrhage. No edema, mass effect or midline shift. Cerebral ventricles: No ventriculomegaly. Paranasal sinuses: Visualized sinuses are unremarkable. No fluid levels. Mastoid air cells: No mastoid effusion. Bones/joints: No acute fracture. Soft tissues: Unremarkable. CT/CT head wo con* [id number] IMPRESSION: No acute intracranial abnormality.
--- NOTE | 2022-03-05 06:17 | W.ED.GENADLT ---
HPI - General Adult General: Chief complaint: General Medical Stated complaint: dizziness/vomiting Time Seen by Provider: 03/05/22 06:13 History of Present Illness: 31-year-old presents due to vertigo. States that this started this last night. Denies any focal weakness or tingling. Denies headache lightheadedness chest pain shortness of breath or palpitations. States that he has diabetes and is worried that sugars are out of control. Also states he recently had a positive COVID contact. He denies any head trauma or blood thinner use. Review of Systems Narrative: - CONSTITUTIONAL: Denies weight loss, fever and chills. - HEENT: Denies changes in vision and hearing. - RESPIRATORY: Denies SOB and cough. - CV: Denies palpitations and CP. - GI: Denies abdominal pain, nausea, vomiting and diarrhea. - : Denies dysuria and urinary frequency. - MSK: Denies myalgia and joint pain. - SKIN: Denies rash and pruritus. - NEUROLOGICAL: As above - PSYCHIATRIC: Denies suicidal ideation [facility] ED PFSH: Medical History (Updated 12/26/21 @ 00:01 by ) No pertinent past medical history Social History (Updated 12/18/21 @ 17:26 by Mckay France MD) Smoking and tobacco status: former smoker Quit status (tobacco): has quit using tobacco Alcohol intake: current Alcohol intake frequency: holidays/special occasions only Physical Exam Narrative: EXAM NARRATIVE: - GENERAL: Alert and oriented x 3. No acute distress. Well-nourished. - EYES: EOMI. Anicteric. - HENT: Atraumatic, no C-spine tenderness. Moist mucous membranes. No scleral icterus. No cervical lymphadenopathy. - LUNGS: Clear to auscultation bilaterally. No accessory muscle use. Equal lung sounds bilaterally. No respiratory distress. - CARDIOVASCULAR: Regular rate and rhythm. No murmur. No JVD. - ABDOMEN: Soft, non-tender and non-distended. Negative CVA tenderness bilaterally, no rebound or guarding, negative Dai sign. No palpable masses. - EXTREMITIES: No edema. Non-tender. - SKIN: No rashes or lesions. Warm. - NEUROLOGIC: Positive Millicent-Hallpike. No meningismus or focal neurological deficits. CN II-XII grossly intact. - PSYCHIATRIC: Cooperative. Appropriate mood and affect. Course Vital Signs: Vital signs: Vital Signs Temperature 98.3 F 03/05/22 05:34 Pulse Rate 84 03/05/22 05:34 Respiratory Rate 18 03/05/22 05:34 Blood Pressure 135/91 03/05/22 05:34 Pulse Oximetry 96 03/05/22 05:34 MDM - General Adult Medical Decision Making 31-year-old presents due to vertigo. Nonfocal neurologic exam. CT scan does not reveal any intracranial hemorrhage or acute abnormality. Symptoms of been present for 24 hours. Improved with meclizine. He has a positive Millicent-Hallpike suggesting BPPV. Remainder of lab work unremarkable. EKG does not reveal any sign of arrhythmia or other acute abnormality. At this time I believe patient would be safe for discharge and outpatient follow-up. Return precautions provided. Plan was reviewed with the patient who expressed understanding. Questions answered. Patient will follow up with PCP. Patient discharged in stable condition. Lab Data : 03/05/22 06:35 03/05/22 06:[address] 03/05/22 06:16 IMPRESSION: No acute intracranial abnormality. Laboratory Results WBC 7.9 10^3/uL (4.0-10.0) 03/05/22 06:35 RBC 5.03 10^6/uL (4.1-5.3) 03/05/22 06:35 Hgb 15.4 g/dL (11.7-16.6) 03/05/22 06:35 Hct 43.9 % (42.0-52.0) 03/05/22 06:35 MCV 87.3 fl (80-94) 03/05/22 06:35 MCH 30.6 pg (28.0-34.0) 03/05/22 06:35 MCHC 35.1 g/dL (30.0-36.0) 03/05/22 06:35 RDW 12.2 % (12.1-15.1) 03/05/22 06:35 Plt Count 197 10^3/cmm (130-400) 03/05/22 06:35 MPV 11.0 fL (7.4-10.4) H 03/05/22 06:35 Neut % (Auto) 62.7 % 03/05/22 06:35 Lymph % (Auto) 22.0 % 03/05/22 06:35 [place] % (Auto) 11.9 % 03/05/22 06:35 Eos % (Auto) 2.8 % 03/05/22 06:35 Baso % (Auto) 0.1 % 03/05/22 06:35 Neut # (Auto) 4.95 10^3/uL (1.8-7.7) 03/05/22 06:35 Lymph # (Auto) 1.7 10^3/uL (0.8-4.8) 03/05/22 06:35 [place] # (Auto) 0.9 10^3/uL (0.2-0.9) 03/05/22 06:35 Eos # (Auto) 0.2 10^3/uL (0.0-0.8) 03/05/22 06:35 Baso # (Auto) 0.0 10^3/uL (0.0-0.1) 03/05/22 06:35 Nucleated RBC % (auto) 0 % 03/05/22 06:35 Nucleated RBCs # 0.0 /100WBC 03/05/22 06:35 Sodium 136 mmol/L (136-145) 03/05/22 06:35 Potassium 4.4 mmol/L (3.5-5.1) 03/05/22 06:35 Chloride 102 mmol/L (98-107) 03/05/22 06:35 Carbon Dioxide 25 mmol/L (22-29) 03/05/22 06:35 Anion Gap 13.4 (5-19) 03/05/22 06:35 BUN 15 mg/dL (6-20) 03/05/22 06:35 Creatinine 0.6 mg/dL (0.7-1.2) L 03/05/22 06:35 GFR Calculation 159.3 mL/min (90-130) H 03/05/22 06:35 Glucose 105 mg/dL (65-115) 03/05/22 06:35 Calculated Osmolality 283 mOsm/kg (285-295) L 03/05/22 06:35 Calcium 9.6 mg/dL (8.5-10.5) 03/05/22 06:35 Total Bilirubin 0.4 mg/dL (0.15-1.2) 03/05/22 06:35 AST 23 U/L (0-40) 03/05/22 06:35 ALT 43 U/L (0-41) H 03/05/22 06:35 Alkaline Phosphatase 65 IU/L (40-130) 03/05/22 06:35 Total Protein 7.1 g/dL (6.6-8.7) 03/05/22 06:35 Albumin 4.7 g/dL (3.5-5.2) 03/05/22 06:35 Globulin 2.4 g/dL (1.3-4.6) 03/05/22 06:35 SARS-CoV-2 Ag (Rapid) Negative (Negative) 03/05/22 06:35 EKG Data EKG 1: Computer generated interpretation: Head CT 03/05/22 06:16 IMPRESSION: No acute intracranial abnormality. 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
[2022-03-05] MEDS: meclizine 25 mg tablet PO (06:20)
[2022-03-05 06:55] LABS: Basophils % 0.1 %; Eosinophils # 0.2 10^3/uL (0.0-0.8); Eosinophils % 2.8 %; Hematocrit 43.9 % (42.0-52.0); Hemoglobin 15.4 g/dL (11.7-16.6); Lymphocytes # 1.7 10^3/uL (0.8-4.8); Mean Corpuscular HGB Conc 35.1 g/dL (30.0-36.0); Mean Corpuscular Hemoglobin 30.6 pg (28.0-34.0); Mean Corpuscular Volume 87.3 fl (80-94); Monocytes # 0.9 10^3/uL (0.2-0.9); Monocytes % 11.9 %; Neutrophils # 4.95 10^3/uL (1.8-7.7); Neutrophils % 62.7 %; Nucleated Red Blood Cells % 0 %; Platelet Count 197 10^3/cmm (130-400); Red Blood Count 5.03 10^6/uL (4.1-5.3); Red Cell Distribution Width 12.2 % (12.1-15.1); White Blood Count 7.9 10^3/uL (4.0-10.0)
[2022-03-05 07:19] LABS: Alanine Aminotransferase 43 U/L (0-41); Albumin Level 4.7 g/dL (3.5-5.2); Alkaline Phosphatase 65 IU/L (40-130); Anion Gap 13.4 (5-19); Aspartate Amino Transferase 23 U/L (0-40); Blood Urea Nitrogen 15 mg/dL (6-20); Calcium 9.6 mg/dL (8.5-10.5); Carbon Dioxide 25 mmol/L (22-29); Chloride 102 mmol/L (98-107); Globulin 2.4 g/dL (1.3-4.6); Glomerular Filtration Rate 159.3 mL/min (90-130); Glucose 105 mg/dL (65-115); Osmolality Calculated 283 mOsm/kg (285-295); Potassium 4.4 mmol/L (3.5-5.1); Sodium 136 mmol/L (136-145); Total Bilirubin 0.4 mg/dL (0.15-1.2); Total Protein 7.1 g/dL (6.6-8.7)
[2022-03-05 07:57] LABS: SARS Covid-2 Antigen Negative (Negative)
[2022-03-05 08:47] VITALS: BP 110/71; PULSE 82; RESP 16; O2SAT 99
== END 2022-03-05 08:52 | disposition home or self-care (01) ==
PROVIDERS: Emergency Provider Emergency Medicine
DX: R42 Dizziness and giddiness (principal); Z87.891 Personal history of nicotine dependence; Z20.822 Contact with and (suspected) exposure to COVID-19
CPT/HCPCS: 70450; 80053; 85025; 87426; 93005; 99284; J8597

== ENCOUNTER 2022-12-20 20:38 | Emergency (ER) | payer MEDICAID, SELFPAY ==
--- NOTE | 2022-12-20 20:46 | XRR_ITS ---
PROCEDURE INFORMATION: Exam: XR Chest Exam date and time: 12/20/2022 9:00 PM Age: 32 years old Clinical indication: Pain; Chest pressure; Additional info: Cp TECHNIQUE: Imaging protocol: Radiologic exam of the chest. Views: 1 view. COMPARISON: CT abdomen pelvis w con* [id number] 12/18/2021 6:34 PM FINDINGS: Lungs: The lung bases are suboptimally assessed due to technique however the upper lungs are clear of focal consolidation. Pleural spaces: Unremarkable. No pleural effusion. No pneumothorax. Heart/Mediastinum: Cardiac silhouette appears normal in size. No obvious vascular congestion. Bones/joints: No acute osseous findings. Other findings: Single view was submitted. XR/XR chest 1V portable [id number] IMPRESSION: No obvious acute consolidation. Suboptimal lung base assessment. Followup including lateral view may be obtained if clinically indicated.
[2022-12-20 20:52] VITALS: BP 146/87; PULSE 87; RESP 20; TEMP 36.7; O2SAT 92; BMI 40.3
--- NOTE | 2022-12-20 20:52 | ECG_ITS ---
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 Measurements Intervals [place] Rate: 84 P: 44 LA: 150 QRS: 61 QRSD: 92 T: 47 QT: 356 QTc: 423 Interpretive Statements SINUS RHYTHM WITH SINUS ARRHYTHMIA NONSPECIFIC T-WAVE ABNORMALITY Compared to ECG 03/05/2022 06:29:21 T-wave abnormality now present Electronically Signed On 12-21-2022 1:43:19 CDT by Gustavo Garcia M.D. [id number]
[2022-12-20 20:57] VITALS: PULSE 85; O2SAT 91; O2SAT 92
--- NOTE | 2022-12-20 20:57 | W.ED.CHESTPA ---
HPI - Chest Pain General: Chief Complaint: Chest Pain Stated Complaint: CP Time Seen by Provider: 12/20/22 20:41 Source: patient and EMS Mode of arrival: EMS Limitations: no limitations History of Present Illness: 32-year-old male he states he has chronic vertigo he states he has been taking his meds he states that tonight at 7 he had an episode where he felt dizzy like his previous vertigo he started having nausea vomiting and had diarrhea as well. He states he started having some sharp chest pains as well states he still feels very nauseous his pain is very sharp in the center of his chest as a stabbing type feeling worse with palpation he rates that pain a 6 out of 10 currently denies any abdominal pain denies any fevers denies any worsening improving factors. Associated symptoms: Reports nausea and vomiting; Deny dyspnea or fever(s) Review of Systems Const: Denies: fever(s), chills, body aches or change in appetite Eyes: Denies: blurry vision or eye discomfort ENMT: Denies: throat pain or dental pain Card: Reports: chest pain Resp: Denies: dyspnea GI: Reports: nausea, vomiting and diarrhea : Denies: dysuria Musc: Denies: neck pain or back pain Skin/Breast: Denies: rash Neuro: Reports: vertigo Psych: Denies: depression [place]/Lymph: Denies: easy bruising All/Imm: Denies: urticaria PFSH ED PFSH: Medical History No pertinent past medical history Social History Smoking and tobacco status: former smoker Quit status (tobacco): has quit using tobacco Alcohol intake: current Alcohol intake frequency: holidays/special occasions only Physical Exam Const: COMMON NORMALS: no acute distress, patient oriented x3 and healthy appearing HENMT: COMMON NORMALS: normocephalic and atraumatic HEAD & SCALP: normocephalic and atraumatic Eye: COMMON NORMALS: conjunctivae normal CONJUNCTIVA: Yes conjunctivae normal Neck/C-Spine: COMMON NORMALS: full ROM and supple Chest: COMMONS NORMALS: normal inspection of the chest and normal palpation of entire chest wall Resp: COMMON NORMALS: normal respiratory effort, No retractions, No use of accessory muscles and clear to auscultation bilaterally AUSCULTATION: clear to auscultation bilaterally Cardio: COMMON NORMALS: regular rate, regular rhythm and No murmurs present (Cardio) RATE: regular rate RHYTHM: regular rhythm GI: COMMON NORMALS: Normal to inspection, nondistended, normoactive bowel sounds present, Soft to palpation, non-tender and no masses PALPATION: Yes Soft to palpation Extremity: COMMON NORMALS: normal to inspection and full ROM Neuro: COMMON NORMALS: patient oriented x3, moves all extremities and no focal motor deficits Psych: COMMON NORMALS: mental status grossly normal, Normal thought process present and cooperative THOUGHT PROCESS: Normal thought process present Skin: COMMON NORMALS: no rashes or lesions noted and no wounds GENERAL SKIN EXAM: no rashes or lesions noted Course Vital Signs: Vital signs: Vital Signs Temperature 98.0 F 12/20/22 20:52 Pulse Rate 85 12/20/22 20:57 Respiratory Rate 20 H 12/20/22 21:05 Blood Pressure 146/87 12/20/22 20:52 Pulse Oximetry 92 12/20/22 21:05 Oxygen Delivery Me thod Room Air 12/20/22 20:57 MDM - Chest Pain Medical Decision Making Patient presents here with vertigo he has chronic vertigo he had been taking his Antivert he then had vomiting and chest pain that is all since resolved he feels much improved after Zofran and Antivert here. He is able ambulate without any difficulties no signs of a stroke no signs of acute coronary syndrome no signs of pulmonary embolism. He is to start taking Antivert again we will prescribe him Zofran he is to follow-up with PCP and return if worsening he understands agrees to plan. Medical Records I reviewed the patient's medical records. Lab Data I reviewed the patient's lab results. 12/20/22 20:26 12/20/22 20: Laboratory Results WBC 8.8 10^3/uL (4.0-10.0) 12/20/22 20: RBC 5.28 10^6/uL (4.1-5.3) 12/20/22 20: Hgb 15.8 g/dL (11.7-16.6) 12/20/22 20: Hct 45.9 % (42.0-52.0) 12/20/22 20: MCV 86.9 fl (80-94) 12/20/22 20: MCH 29.9 pg (28.0-34.0) 12/20/22: MCHC 34.4 g/dL (30.0-36.0) 12/20/22: RDW 12.4 % (12.1-15.1) 12/20/22 Plt Count 211 10^3/cmm (130-400) 12/20/22 MPV 11.3 fL (7.4-10.4) H 12/20/22: Neut % (Auto) 66.6 % 12/20/22: Lymph % (Auto) 22.8 % 12/20/22: [place] % (Auto) 8.2 % 12/20/22: Eos % (Auto) 1.2 % 12/20/22 Baso % (Auto) 0.3 % 12/20/22 Neut # (Auto) 5.86 10^3/uL (1.8-7.7) 12/20/22: Lymph # (Auto) 2.0 10^3/uL (0.8-4.8) 12/20/22: [place] # (Auto) 0.7 10^3/uL (0.2-0.9) 12/20/22: Eos # (Auto) 0.1 10^3/uL (0.0-0.8) 12/20/22: Baso # (Auto) 0.0 10^3/uL (0.0-0.1) 12/20/22 Nucleated RBC % (auto) 0 % 12/20/22 Nucleated RBCs # 0.0 /100WBC 12/20/22: PT 12.60 SECONDS (12.1-14.9) 12/20/22: INR 0.91 (0.8-1.2) 12/20/22 20: Sodium 138 mmol/L (136-145) 12/20/22: Potassium 4.2 mmol/L (3.5-5.1) 12/20/22: Chloride 101 mmol/L (98-107) 12/20/22 20:26 Carbon Dioxide 23 mmol/L (22-29) 12/20/22 20:26 Anion Gap 18.2 (5-19) 12/20/22 20:26 BUN 16 mg/dL (6-20) 12/20/22 20:26 Creatinine 0.8 mg/dL (0.7-1.2) 12/20/22 20:26 GFR Calculation 113.5 mL/min (90-130) 12/20/22 20:26 Glucose 117 mg/dL (65-115) H 12/20/22 20:26 Calculated Osmolality 288 mOsm/kg (285-295) 12/20/22 20: Calcium 9.7 mg/dL (8.5-10.5) 12/20/22 20: Total Bilirubin 0.2 mg/dL (0.15-1.2) 12/20/22 20:26 AST 42 U/L (0-40) H 12/20/22 20:26 ALT 87 U/L (0-41) H 12/20/22 20:26 Alkaline Phosphatase 67 U/L (40-130) 12/20/22 20:26 Troponin T Baseline 6 ng/L (0-15) 12/20/22 20:26 Total Protein 7.5 g/dL (6.6-8.7) 12/20/22 20: Albumin 4.8 g/dL (3.5-5.2) 12/20/22 20: Globulin 2.7 g/dL (1.3-4.6) 12/20/22 20: Lipase 15 U/L (13-60) 12/20/22 20:26 EKG Data EKG 1: I personally reviewed and interpreted this EKG as follows: EKG interpretation date: 12/20/22 EKG interpretation time: 20:52 Interpretation: nsr hr [address] or t wave abnormalities qrs 92 qtc 397 Discharge Plan Discharge Patient Disposition: Home Clinical Impression: Vomiting, Atypical chest pain, Vertigo Condition: Stable Prescriptions: New ondansetron 4 mg tablet,disintegrating 4 mg PO Q6H PRN (Reason: nausea and vomiting) Qty: 14 0RF No Action meclizine 25 mg tablet 25 mg PO TID PRN (Reason: vertigo) Qty: 10 0RF Discharge Orders: Discharge ED (Routine); Ordered 12/20/22 Ordered By: Abdullahi Mcgregor Referrals: Alfredo Lockhart MD [Primary Care Provider] - 1-3 days Discharge Diet: Advance as tolerated Discharge Activity: Resume usual activity Patient Instructions: Chest Pain (ED), Vertigo (ED) Coding Level of Care Code ED [facility] for a[facility]
[2022-12-20 21:03] LABS: Basophils % 0.3 %; Eosinophils # 0.1 10^3/uL (0.0-0.8); Eosinophils % 1.2 %; Hematocrit 45.9 % (42.0-52.0); Hemoglobin 15.8 g/dL (11.7-16.6); Lymphocytes % 22.8 %; Mean Corpuscular HGB Conc 34.4 g/dL (30.0-36.0); Mean Corpuscular Hemoglobin 29.9 pg (28.0-34.0); Mean Corpuscular Volume 86.9 fl (80-94); Mean Platelet Volume 11.3 fL (7.4-10.4); Monocytes # 0.7 10^3/uL (0.2-0.9); Monocytes % 8.2 %; Neutrophils # 5.86 10^3/uL (1.8-7.7); Neutrophils % 66.6 %; Nucleated Red Blood Cells % 0 %; Platelet Count 211 10^3/cmm (130-400); Red Blood Count 5.28 10^6/uL (4.1-5.3); Red Cell Distribution Width 12.4 % (12.1-15.1); White Blood Count 8.8 10^3/uL (4.0-10.0)
[2022-12-20] MEDS: sodium chloride 0.9% 1,000 ML 999 ML IV (21:04)
[2022-12-20 21:05] VITALS: RESP 20; O2SAT 92
[2022-12-20] MEDS: morphine 4 mg/mL SDV 1 mL IVP (21:05)
[2022-12-20] MEDS: ondansetron 2 mg/ML SDV 2 mL 4 MG IVP (21:05)
[2022-12-20] MEDS: meclizine 25 mg tablet 50 MG PO (21:12)
[2022-12-20 21:17] LABS: INR 0.91 (0.8-1.2)
[2022-12-20 21:21] LABS: Troponin(5th) Baseline 6 ng/L (0-15)
[2022-12-20 21:23] LABS: Alanine Aminotransferase 87 U/L (0-41); Albumin Level 4.8 g/dL (3.5-5.2); Alkaline Phosphatase 67 U/L (40-130); Anion Gap 18.2 (5-19); Aspartate Amino Transferase 42 U/L (0-40); Blood Urea Nitrogen 16 mg/dL (6-20); Calcium 9.7 mg/dL (8.5-10.5); Carbon Dioxide 23 mmol/L (22-29); Chloride 101 mmol/L (98-107); Globulin 2.7 g/dL (1.3-4.6); Glomerular Filtration Rate 113.5 mL/min (90-130); Glucose 117 mg/dL (65-115); Lipase 15 U/L (13-60); Osmolality Calculated 288 mOsm/kg (285-295); Potassium 4.2 mmol/L (3.5-5.1); Sodium 138 mmol/L (136-145); Total Bilirubin 0.2 mg/dL (0.15-1.2); Total Protein 7.5 g/dL (6.6-8.7)
[2022-12-20 22:08] VITALS: BP 146/87; PULSE 88; RESP 20; O2SAT 97
== END 2022-12-20 22:09 | disposition home or self-care (01) ==
PROVIDERS: Emergency Provider Emergency Medicine; PCP Family Medicine
DX: R42 Dizziness and giddiness (principal); R07.89 Other chest pain; R11.11 Vomiting without nausea; Z87.891 Personal history of nicotine dependence
CPT/HCPCS: 71045; 80053; 83690; 84484; 85025; 85610; 93005; 96361; 96374; 96375; 99285; J2270; J2405; J7030; J8597